=== PATIENT | female | born 1960 | race Caucasian/White ===

== ENCOUNTER 2022-02-28 09:52 | Outpatient (CLI) | payer OTHER, SELFPAY ==
[2022-02-28 12:38] LABS: HDL Direct 50 mg/dL
[2022-02-28 12:49] LABS: LDL Cholesterol Direct 71 mg/dL
[2022-02-28 13:10] LABS: Thyroid Stimulating Hormone 0.648 uIU/mL (0.465-4.680)
[2022-02-28 13:14] LABS: Creatinine Urine 57.2 mg/dL
[2022-02-28 13:56] LABS: MALB Creatinine Ratio < 10.5 mg/g (0-30); Microalbumin Urine Random < 6.0 mg/L (0-16.7)
[2022-02-28 14:34] LABS: Free T4 Free Thyroxine 1.44 ng/mL (0.78-2.19)
== END 2022-02-28 09:53 | disposition home or self-care (01) ==
LOC: ANHWCLAB 09:54
PROVIDERS: Visit Provider Internal Medicine Endocrinology, Diabetes & Metabolism
DX: E10.65 Type 1 diabetes mellitus with hyperglycemia (principal); E03.9 Hypothyroidism, unspecified
CPT/HCPCS: 36415; 82043; 83718; 83721; 84439; 84443

== ENCOUNTER 2022-11-13 09:18 | Outpatient (CLI) | payer OTHER, SELFPAY ==
[2022-11-13 17:16] LABS: Alanine Aminotransferase 21 U/L (6-35); Albumin Level 4.4 g/dL (3.5-5.1); Alkaline Phosphatase 60 U/L (38-126); Anion Gap 7 mmol/L (8-16); Aspartate Amino Transferase 60 U/L (14-36); Bilirubin,Total 0.8 mg/dL (0.2-1.3); Blood Urea Nitrogen 14 mg/dL (7-17); Calcium 8.5 mg/dL (8.4-10.2); Carbon Dioxide 33 mmol/L (22-30); Chloride 97 mmol/L (98-107); Cholesterol 149 mg/dL (0-200); Estimated Glomerular Filt Rate > 60; Glucose 149 mg/dL (65-110); Sodium 137 mmol/L (137-145); Triglycerides 100 mg/dL (<150)
[2022-11-13 17:33] LABS: LDL Cholesterol Direct 69 mg/dL
[2022-11-13 17:40] LABS: Thyroid Stimulating Hormone 0.466 uIU/mL (0.465-4.680)
[2022-11-13 17:49] LABS: Potassium 3.9 mmol/L (3.4-5.0)
[2022-11-13 18:57] LABS: HDL Direct 42 mg/dL
[2022-11-13 19:04] LABS: Creatinine Urine 68.7 mg/dL
[2022-11-13 19:29] LABS: MALB Creatinine Ratio < 8.7 mg/g (0-30); Microalbumin Urine Random < 6.0 mg/L (0-16.7)
[2022-11-13 19:56] LABS: Free T4 Free Thyroxine 1.98 ng/mL (0.78-2.19)
[2022-11-13 20:04] LABS: Vitamin D 25 Hydroxy < 12.8 ng/mL
== END 2022-11-13 09:19 | disposition home or self-care (01) ==
LOC: ANHWCLAB 09:20
PROVIDERS: Visit Provider Internal Medicine Endocrinology, Diabetes & Metabolism
DX: E10.65 Type 1 diabetes mellitus with hyperglycemia (principal); E03.9 Hypothyroidism, unspecified; E55.9 Vitamin D deficiency, unspecified
CPT/HCPCS: 36415; 80053; 80061; 82043; 82306; 82607; 84439; 84443